=== PATIENT | female | born 1995 | race Caucasian/White ===

== ENCOUNTER → 2023-04-27 17:41 | Outpatient (CLI) | payer OTHER, SELFPAY ==
--- NOTE | 2023-04-27 17:43 | DI.RAD.S_ITS ---
PROCEDURE: XR KNEE RT 3V INDICATIONS: Right knee injury TECHNIQUE: 3 views of the knee were acquired. COMPARISON: None. FINDINGS: Bones: In this patient with this given history, scrutiny is given to the patella. No patellar fracture can be seen. No fractures or dislocations. No suspicious bony lesions. Soft tissues: No significant joint effusion. No suspicious soft tissue calcifications. IMPRESSION: No patella fracture. No significant joint effusion. If it would be helpful for clinical management decision making, please consider a dedicated, scheduled knee MRI for further evaluation (assuming that there is no contraindication). Dictated by: Chicho Ontiveros M.D. on 04/27/2023 at 20:02 Approved by: Chicho Ontiveros M.D. on 04/27/2023 at 20:03
== END ==
PROVIDERS: Referring Provider Nurse Practitioner Family; Visit Provider Nurse Practitioner Family
DX: S80.01XA Contusion of right knee, initial encounter (principal); X58.XXXA Exposure to other specified factors, initial encounter
CPT/HCPCS: 73562